=== PATIENT | female | born 1960 | race Caucasian/White ===

== ENCOUNTER 2017-12-07 10:14 | Emergency (ER) | payer OTHER ==
[2017-12-07 12:57] LABS: ADD MAN DIFF? NO
[2017-12-07 13:01] LABS: BASOPHIL # 0.1 10^3/ul (0.0-0.1); BASOPHILS % 0.6 % (0.0-2.0); HEMATOCRIT 41.2 % (37.0-47.0); HEMOGLOBIN 13.1 g/dl (12.0-16.0); LYMPHOCYTES # 3.2 10^3/ul (0.8-2.9); LYMPHOCYTES % 29.7 % (15.0-51.0); MEAN CORPUSCULAR HEMOGLOBIN 29.2 pg (29.0-33.0); MEAN CORPUSCULAR HGB CONC 31.8 g/dl (32.0-37.0); MEAN CORPUSCULAR VOLUME 91.8 fl (82.0-101.0); MEAN PLATELET VOLUME 11.9 fl (7.4-10.4); MONOCYTE # 0.6 10^3/ul (0.3-0.9); MONOCYTES % 5.5 % (0.0-11.0); NEUTROPHILS % 54.9 % (39.0-77.0); PLATELET COUNT 246 10^3/UL (140-415); RED BLOOD COUNT 4.49 10^6/ul (4.20-5.40); RED CELL DISTRIBUTION WIDTH 13.9 % (11.5-14.5)
[2017-12-07 13:01] LABS: WHITE BLOOD COUNT 10.8 10^3/ul (4.8-10.8)
[2017-12-07 13:30] LABS: ALANINE AMINOTRANSFERASE 35 IU/L (13-69); ALBUMIN 4.7 g/dl (3.3-4.9); ALBUMIN/GLOBULIN RATIO 1.04; ALKALINE PHOSPHATASE 78 IU/L (42-121); ANION GAP 18 (8-16); ASPARTATE AMINO TRANSFERASE 61 IU/L (15-46); BILIRUBIN,INDIRECT 0.3 mg/dl (0-1.1); BILIRUBIN,TOTAL 0.3 mg/dl (0.2-1.3); BLOOD UREA NITROGEN 9 mg/dl (7-20); CALCIUM 9.3 mg/dl (8.4-10.2); CARBON DIOXIDE 24 mmol/L (21-31); CHLORIDE 102 mmol/L (97-110); CREATININE 0.56 mg/dl (0.44-1.00); GLUCOSE 85 mg/dl (70-220); LIPASE 189 U/L (23-300); POTASSIUM 5.7 mmol/L (3.5-5.1); SODIUM 138 mmol/L (135-144); TOTAL PROTEIN 9.2 g/dl (6.1-8.1)
[2017-12-07 13:37] LABS: ADD UMIC YES; UR ASCORBIC ACID 20 mg/dL (NEGATIVE); UR BILIRUBIN (Dip) NEGATIVE (NEGATIVE); UR BLOOD (Dip) 1+ mg/dL (NEGATIVE); UR CLARITY CLEAR (CLEAR); UR COLOR YELLOW (YELLOW); UR GLUCOSE (Dip) NEGATIVE (NEGATIVE); UR KETONES (Dip) NEGATIVE (NEGATIVE); UR LEUKOCYTE ESTERASE (Dip) NEGATIVE Leu/ul (NEGATIVE); UR NITRITE (Dip) NEGATIVE (NEGATIVE); UR RBC 1 /HPF (0-5); UR SPECIFIC GRAVITY (Dip) 1.016 (1.003-1.030); UR TOTAL PROTEIN (Dip) NEGATIVE (NEGATIVE); UR UROBILINOGEN (Dip) NEGATIVE (NEGATIVE); UR WBC 0 /HPF (0-5)
[2017-12-07] MEDS: IOHEXOL 300MG/ML 150 ML BTL (13:52)
[2017-12-07] MEDS: SOD CHLORIDE 0.9% 100 ML (13:52)
== END 2017-12-07 15:54 | disposition home or self-care (01) ==
LOC: FTE 10:14
DX: K82.8 Other specified diseases of gallbladder (principal); E87.5 Hyperkalemia; Y82.8 Other medical devices associated with adverse incidents; Z79.84 Long term (current) use of oral hypoglycemic drugs
CPT/HCPCS: 36415; 74177; 76705; 80053; 81001; 83690; 85025; 99285-25

== ENCOUNTER 2017-12-18 11:51 | Day surgery (SDC) | payer OTHER ==
[~2017-12-18 11:51] MED LIST: CEFAZOLIN 2 GM/50 ML (PMX) 50 ML IVPB; SOD CHLORIDE 0.9% 1,000 ML IV
[2017-12-18] MEDS ORDERED: DIPHENHYDRAMINE 50 MG INJ IV (13:30)
[2017-12-18] MEDS ORDERED: HYDROmorphONE (0.2 MG/ML) 10ML SYG IV (13:30)
[2017-12-18] MEDS ORDERED: LABETALOL HCL 20MG INJ IV (13:30)
[2017-12-18] MEDS ORDERED: METOCLOPRAMIDE 10 MG INJ IV (13:30)
[2017-12-18] MEDS ORDERED: FENTAnyl 50 MCG/ML VIAL IV (13:30)
[2017-12-18] MEDS ORDERED: hydrALAzine 20 MG INJ IV (13:30)
[2017-12-18] MEDS ORDERED: MIDAZOLAM 1 MG/ML 2 ML INJ (13:42)
[2017-12-18] MEDS: BUPIVACAINE 0.25% (MPF) 30 ML INJ (13:55)
[2017-12-18] MEDS ORDERED: ONDANSETRON 4 MG INJ (14:43)
[2017-12-18] MEDS ORDERED: LIDOCAINE 2% (SDV) 5 ML INJ (14:45)
[2017-12-18] MEDS ORDERED: ROCURONIUM 50 MG INJ (14:45)
[2017-12-18] MEDS ORDERED: CEFAZOLIN 1 GM INJ (14:45)
[2017-12-18] MEDS ORDERED: NEOSTIGMINE 3 MG/3 ML SYRINGE (14:45)
[2017-12-18] MEDS ORDERED: PROPOFOL 20 ML (14:45)
[2017-12-18] MEDS ORDERED: GLYCOPYRROLATE 0.4 MG INJ (14:45)
[2017-12-18] MEDS: ONDANSETRON 4 MG INJ IV (15:11)
[2017-12-18] MEDS: MEPERIDINE 25 MG INJ IV (15:11)
[2017-12-18] MEDS: HYDROmorphONE (0.2 MG/ML) 10ML SYG IV (15:41)
[2017-12-18] MEDS: HYDROCODONE/APAP (5/325) TAB PO (16:37)
== END 2017-12-18 17:13 | disposition home or self-care (01) ==
LOC: SDS 11:51
DX: K80.10 Calculus of gallbladder with chronic cholecystitis without obstruction (principal); I10 Essential (primary) hypertension; E11.9 Type 2 diabetes mellitus without complications; E78.5 Hyperlipidemia, unspecified
CPT/HCPCS: 47562; 82962; 88300; 88304